=== PATIENT | male | born 1950 | race Caucasian/White ===

== ENCOUNTER 2017-01-01 23:35 | Observation (INO) | payer OTHER ==
[~2017-01-01] VITALS: Ht 182.9 cm; Wt 79.9 kg
[2017-01-02] VITALS (12 sets, daily range): BP systolic 151–201; BP diastolic 71–94; PULSE 27–75; TEMP 97.3–98.5
[2017-01-02] MEDS ORDERED: NORVASC 10MG10 MG PO (01:11)
[2017-01-02] MEDS ORDERED: ASPIRIN 81M81 MG/TA2 PO (01:12)
[2017-01-02] MEDS ORDERED: LIPITOR 80MG80 MG PO (01:13)
[2017-01-02] MEDS ORDERED: CATAPRES 0.1MG0.1 MG PO (01:14)
[2017-01-02] MEDS ORDERED: MOBIC15 MG PO (01:15)
[2017-01-02] MEDS ORDERED: ROBAXIN 75750 MG/TAB PO (01:17)
[2017-01-02] MEDS ORDERED: MINOCYCLIN100 MG/CAP PO (01:19)
[2017-01-02] MEDS ORDERED: DITROPAN 5MG TAB5 MG PO (01:20)
[2017-01-02] MEDS ORDERED: KLOR-CON M1010 MEQ PO (01:22)
[2017-01-02] MEDS ORDERED: ZOLOFT 50MG50 MG PO (01:23)
[2017-01-02] MEDS ORDERED: IMITREX50 MG PO (01:24)
[2017-01-02] MEDS ORDERED: FLOMAX 0.40.4 MG/CAP PO (01:25)
[2017-01-02 08:44] LABS: HEMATOCRIT 37.5 % (42.0-52.0); HEMOGLOBIN 12.8 g/dl (13.5-18.0); MEAN CELL VOLUME 90 fl (80.0-100.0); MEAN CORPUSCULAR HEMOGLOBIN 31 pg (27.0-31.0); MEAN CORPUSCULAR HGB CONC 34 g/dl (33.0-37.0); PLATELET COUNT 238 K/mm3 (130-400); RED BLOOD COUNT 4.18 M/mm3 (4.20-5.60); REDCELL DISTRIBUTION WIDTH-CV 13.9 % (11.5-14.5); WHITE BLOOD COUNT 6.8 K/mm3 (4.8-10.8)
[2017-01-02 08:51] LABS: INR 1.1 (0.8-3.0); PROTHROMBIN TIME 12.3 SECONDS (9.7-12.8)
[2017-01-02 08:56] LABS: CALCIUM 8.9 mg/dL (8.4-10.2); CREATININE, serum 1.12 mg/dL (0.66-1.25); POTASSIUM 3.4 mmol/L (3.4-5.0)
[2017-01-02] MEDS ORDERED: CEPHALEXIN500 M1 PO (16:03)
== END 2017-01-02 19:30 | disposition home or self-care (01) ==
LOC: MEDICAL 23:35
PROVIDERS: Internal Medicine Interventional Cardiology
DX: R00.1 Bradycardia, unspecified (principal); I73.9 Peripheral vascular disease, unspecified; Z98.890 Other specified postprocedural states; F17.210 Nicotine dependence, cigarettes, uncomplicated; K21.9 Gastro-esophageal reflux disease without esophagitis; I10 Essential (primary) hypertension
CPT/HCPCS: C1785; C1894; C1898; G0378; J0690; J2250; J3010; J7030